=== PATIENT | female | born 1995 | race Caucasian/White ===

== ENCOUNTER 2018-03-15 11:40 | Outpatient (CLI) | END 2018-03-15 19:59 | disposition home or self-care (01) ==

== ENCOUNTER 2018-03-31 16:04 | Outpatient (CLI) | END 2018-03-31 20:45 | disposition home or self-care (01) ==

== ENCOUNTER 2018-04-01 11:06 | Outpatient (CLI) | END 2018-04-01 12:45 | disposition home or self-care (01) ==

== ENCOUNTER 2018-04-20 08:57 | Inpatient (IN) | END 2018-04-23 13:00 | disposition home or self-care (01) | DRG 766 ==

== ENCOUNTER 2018-10-27 14:51 | Emergency (ER) | payer MEDICAID ==
[~2018-10-27] VITALS: Ht 167.6 cm; Wt 89.6 kg
[~2018-10-27 14:51] MED LIST: PREN-93 PO
[2018-10-27 15:00] VITALS: Ht 167.6 cm; Wt 89.6 kg
--- NOTE | 2018-10-27 17:58 | ERD ---
ER Documentation Chief Complaint Chief Complaint Spotting, AP X 2 days, 9 wks HPI Patient is a 23-year-old female, G2, P1, presents the ER for concerns of vaginal spotting, diffuse abdominal pain times 2 days. Patient states she only has vaginal spotting when wiping. Patient denies wearing any pads. Patient denies any nausea, vomiting, diarrhea, fevers or chills. Patient states she goes to the [facility] for her OB care. Patient has not had an ultrasound yet. Patient states her last menstrual period was 3 months ago. Patient does not recall exact date. ROS All systems reviewed and are negative except as per history of present illness. Medications Home Meds Active Scripts Cephalexin* (Keflex*) 500 Mg Capsule, 500 MG PO BID for 7 Days, CAP Prov:HAIDER CARVAJAL PA-C 10/27/18 Reported Medications Vit No.124/Iron/FA ( Vitamin Tablet) 1 Each Tablet, 1 EACH PO DAILY, TAB 03/15/18 Allergies Allergies: Coded Allergies: No Known Allergy (Unverified , 04/20/18) PMhx/Soc History of Surgery: No Anesthesia Reaction: No Hx Neurological Disorder: No Hx Respiratory Disorders: Yes (ASTHMA (NOT TAKING MEDS)) Hx Cardiac Disorders: No Hx Psychiatric Problems: No Hx Miscellaneous Medical Probl: No Hx Alcohol Use: No Hx Substance Use: No Hx Tobacco Use: No Smoking Status: Never smoker FmHx Family History: No diabetes Physical Exam Vitals Physical Exam GENERAL: Well-developed, well-nourished female. Appears in no acute distress. Speaking in full sentences. HEAD: Normocephalic, atraumatic. EYES: Pupils are equally reactive bilaterally. EOMs grossly intact. No conjunctival erythema. ENT: Moist mucous membranes. No uvula deviation. No kissing tonsils. NECK: Supple. No meningismus. Normal range of motion of the neck. LUNG: Clear to auscultation bilaterally. No rhonchi, wheezing, rales or coarse breath sounds. HEART: Regular rate and rhythm. No murmurs, rubs or gallops. ABDOMEN: Soft and nondistended. Slight tenderness to palpation throughout the abdomen. Positive bowel sounds in all four quadrants. No rebound tenderness, no guarding. (-) McBurney's point tenderness. No CVA tenderness. EXTREMITIES: Equal pulses bilaterally. No peripheral clubbing, cyanosis or edema. No unilateral leg swelling. NEUROLOGIC: Alert and oriented. Moving all four extremities without any difficulty. Normal speech. Steady gait. SKIN: Normal color. Warm and dry. No rashes or lesions. Results 24 hrs Laboratory Tests Test 10/27/18 16:12 10/27/18 16:28 Urine Color YELLOW Urine Clarity CLEAR Urine pH 6.0 Urine Specific Robbins 1.023 Urine Ketones NEGATIVE mg/dL Urine Nitrite NEGATIVE mg/dL Urine Bilirubin NEGATIVE mg/dL Urine Urobilinogen NEGATIVE mg/dL Urine Leukocyte Esterase TRACE Josesito/ul Urine Microscopic RBC 1 /HPF Urine Microscopic WBC 1 /HPF Urine Squamous Epithelial Cells FEW /HPF Urine Hemoglobin NEGATIVE mg/dL Urine Glucose NEGATIVE mg/dL Urine Total Protein NEGATIVE mg/dl White Blood Count 10.1 10^3/ul Red Blood Count 3.74 10^6/ul Hemoglobin 10.3 g/dl Hematocrit 32.7 % Mean Corpuscular Volume 87.4 fl Mean Corpuscular Hemoglobin 27.5 pg Mean Corpuscular Hemoglobin Concent 31.5 g/dl Red Cell Distribution Width 14.3 % Platelet Count 351 10^3/UL Mean Platelet Volume 8.8 fl Immature Granulocytes % 0.300 % Neutrophils % 58.7 % Lymphocytes % 32.8 % Monocytes % 6.5 % Eosinophils % 1.3 % Basophils % 0.4 % Nucleated Red Blood Cells % 0.0 /100WBC Immature Granulocytes # 0.030 10^3/ul Neutrophils # 6.0 10^3/ul Lymphocytes # 3.3 10^3/ul Monocytes # 0.7 10^3/ul Eosinophils # 0.1 10^3/ul Basophils # 0.0 10^3/ul Nucleated Red Blood Cells # 0.0 10^3/ul Sodium Level 139 mmol/L Potassium Level 4.5 mmol/L Chloride Level 106 mmol/L Carbon Dioxide Level 24 mmol/L Anion Gap 9 Blood Urea Nitrogen 10 mg/dl Creatinine 0.58 mg/dl Est Glomerular Filtrat Rate mL/min > 60 mL/min Glucose Level 90 mg/dl Calcium Level 9.7 mg/dl Total Bilirubin 0.0 mg/dl Direct Bilirubin 0.00 mg/dl Indirect Bilirubin 0.0 mg/dl Aspartate Amino Transf (AST/SGOT) 18 IU/L Alanine Aminotransferase (ALT/SGPT) 20 IU/L Alkaline Phosphatase 75 IU/L Total Protein 8.0 g/dl Albumin 4.3 g/dl Globulin 3.70 g/dl Albumin/Globulin Ratio 1.16 Lipase 124 U/L Beta HCG, Quantitative 88897.0 mIU/ml Procedures/MDM ED COURSE: The patient was stable throughout ED course. I kept the patient and/or family informed of laboratory and diagnostic imaging results throughout the ED course. DIAGNOSTIC IMAGING: Read by radiologist. Patient: BONIFACIO MEHTA : 1995 Age: 23 Sex: F MR #: [id number] DOS: 10/27/18 1607 Ordering MD: HAIDER CARVAJAL PA-C Location: FTE Room/Bed: PROCEDURE: US OB. CLINICAL INDICATION: Spotting. . TECHNIQUE: Transabdominal views of the pelvis are available for review. COMPARISON: US PELVIS 04/20/2018 FINDINGS: There is a single intrauterine gestation with the crown-rump length measuring 1.83 cm, corresponding to a gestational age of 8 weeks and 2 days. The heart rate is noted at 176 bpm. Uterus is normal in appearance measuring 9.9 x 6.4 x 7.8 cm. The ovaries are normal in size and echogenicity. Normal Doppler flow is identified in both ovaries. The right ovary measures 4.1 x 3.1 x 4.4 cm. The left ovary measures 4.4 x 1.6 x 2.6 cm. There is no free fluid. IMPRESSION: Single live intrauterine with an estimated gestational age of 8 weeks and 2 days, based on ultrasound measurements. BRITTANY based on ultrasound measurements is 06/06/2019. RPTAT: HH Physician Love Date Time Electronically viewed and signed by Physician Love on 10/27/2018 17:20 ME/ CC: HAIDER CARVAJAL PA-C [phone] MEDICAL DECISION MAKING: This is a 23-year-old female, G2, P1, approximately 9 weeks , presents ER for concerns of vaginal spotting times 2-3 days now. Patient also reports diffuse abdominal pain.. Vital signs were reviewed. Patient was afebrile. Patient was hemodynamically stable. Urine test was positive. [place] [address]. Patient was noted to be A+ at previous visits. There is no indication for RhoGam at today's visit. CBC showed no evidence of systemic infection or severe anemia. CMP showed no severe electrolyte abnormalities, acidosis, alkalosis, renal failure or liver injury. UA did show trace leukocyte esterase. We will treat patient with course of antibiotics for concerns of UTI. Pelvic US showed Single live intrauterine with an estimated gestational age of 8 weeks and 2 days, based on ultrasound measurements. BRITTANY based on ultrasound measurements is 06/06/2019. At this time, the patient presentation was consistent with vaginal bleeding in the setting of as well as UTI. Low suspicion for ectopic , ruptured ectopic , molar , subchorionic hematoma, spontaneous , incomplete , complete , missed , placental a bruption, placental previa, vasa previa, uterine rupture, anembyronic . Patient was nontoxic, non-opening prior to discharge. Repeat beta hCG and ultrasound advised in 2 days. PRESCRIPTIONS: Keflex DISCHARGE: At this time, patient is stable for discharge and outpatient management. I had a conversation at length with the patient about the concerns of vaginal bleeding during the 1st trimester of . Patient and/or family understands that her vaginal bleeding can be a normal finding or a sign of miscarriage. I have instructed the patient to follow-up with her OBGYN in 1-2 days for further monitoring including a repeat b-HCG level. I have instructed the patient to promptly return to the ER at any time for any new or worsening symptoms includi ng increased pain, nausea, vomiting, continued bleeding, weakness, syncope or fever. The patient and/or family expressed understanding of and agreement with this plan. All questions were answered. Home care instructions were provided.. Disclaimer: Inadvertent spelling and grammatical errors are likely due to EHR/dictation software use and do not reflect on the overall quality of patient care. Also, please note that the electronic time recorded on this note does not necessarily reflect the actual time of the patient encounter. Departure Diagnosis: Primary Impression: Vaginal bleeding affecting early Additional Impression: UTI (urinary tract infection) Urinary tract infection type: site unspecified Hematuria presence: without hematuria Qualified Codes: N39.0 - Urinary tract infection, site not specified Condition: Stable Patient Instructions: Understanding Urinary Tract Infections (UTIs), Vaginal Bleed in Referrals: [facility] YOU HAVE RECEIVED A MEDICAL SCREENING EXAM AND THE RESULTS INDICATE THAT YOU DO NOT HAVE A CONDITION THAT REQUIRES URGENT TREATMENT IN THE EMERGENCY DEPARTMENT. FURTHER EVALUATION AND TREATMENT OF YOUR CONDITION CAN WAIT UNTIL YOU ARE SEEN IN YOUR DOCTORS OFFICE WITHIN THE NEXT 1-2 DAYS. IT IS YOUR RESPONSIBILITY TO MAKE AN APPOINTMENT FOR FOLOW-UP CARE. IF YOU HAVE A PRIMARY DOCTOR --you should call your primary doctor and schedule an appointment IF YOU DO NOT HAVE A PRIMARY DOCTOR YOU CAN CALL OUR PHYSICIAN REFERRAL HOTLINE AT IF YOU CAN NOT AFFORD TO SEE A PHYSICIAN YOU CAN CHOSE FROM THE FOLLOWING [facility] [address] [facility] [address] [place] [address] [facility] [address] [facility] [address] [facility] [address] [facility]. [facility] [address] [facility]. [facility] YOU HAVE RECEIVED A MEDICAL SCREENING EXAM AND THE RESULTS INDICATE THAT YOU DO NOT HAVE A CONDITION THAT REQUIRES URGENT TREATMENT IN THE EMERGENCY DEPARTMENT. FURTHER EVALUATION AND TREATMENT OF YOUR CONDITION CAN WAIT UNTIL YOU ARE SEEN IN YOUR DOCTORS OFFICE WITHIN THE NEXT 1-2 DAYS. IT IS YOUR RESPONSIBILITY TO MAKE AN APPOINTMENT FOR FOLOW-UP CARE. IF YOU HAVE A PRIMARY DOCTOR --you should call your primary doctor and schedule and appointment IF YOU DO NOT HAVE A PRIMARY DOCTOR YOU CAN CALL OUR PHYSICIAN REFERRAL HOTLINE AT . IF YOU CAN NOT AFFORD TO SEE A PHYSICIAN YOU CAN CHOSE FROM THE FOLLOWING [facility] INSTITUTIONS: [facility] [address] [place] [address] [facility] [address] [place] [address] [facility] [address] [place] [address] [employer] REFERRAL LIST SANDRITA, [place] [address] [facility] [address] [place] [address] OFFICE FAX , [place] [address] [place] [address] [address] [facility] [address] [place] [address] [address] DELUCA, [facility] [address], [address] [place] [address] [address] [facility] [address] [facility] [place] [address] [facility] [address] [place] [address] [phone] [facility] [address] - [place] [address], [place] [address] DR [place], [place] [address] [facility], [place] [address] [facility] [address] [place], [place] [id number] Additional Instructions: Call your primary care doctor/ OBGYN TOMORROW for an appointment during the next 1-2 days.See the doctor sooner or return here if your condition worsens before your appointment time. Repeat beta hCG and ultrasound advised in 2 days. HAIDER CARVAJAL PA-C Oct 27, 2018 17:58
[2018-10-27] MEDS ORDERED: CEPH-443 PO (17:59)
[2018-10-27 18:02] VITALS: BP 128/62; PULSE 73; RESP 18
== END 2018-10-27 18:05 | disposition home or self-care (01) ==
LOC: FTE 14:51
DX: O20.9 Hemorrhage in early pregnancy, unspecified (principal); O23.41 Unspecified infection of urinary tract in pregnancy, first trimester; O99.511 Diseases of the respiratory system complicating pregnancy, first trimester; J45.909 Unspecified asthma, uncomplicated; Z3A.08 8 weeks gestation of pregnancy
CPT/HCPCS: 36415; 76805; 80053; 81001; 83690; 84702; 85025

== ENCOUNTER 2019-05-29 10:10 | Inpatient (IN) | payer MEDICAID ==
[~2019-05-29] VITALS: Ht 167.6 cm; Wt 101.3 kg
[~2019-05-29 10:10] MED LIST changes: +CEPH-443 PO
[2019-05-29] MEDS ORDERED: LACTATED RINGER'S 1,000 ML IV SCH (10:21)
[2019-05-29] MEDS ORDERED: MISOPROSTOL 200 MCG TAB PR PRN ×2 (10:30→12:30)
[2019-05-29] MEDS ORDERED: OXYTOCIN 30 UNITS/LR 500 ML IV PRN ×2 (10:30→12:30)
[2019-05-29] MEDS ORDERED: CEFAZOLIN 2 GM/50 ML (PMX) 50 ML IVPB SCH (10:30)
[2019-05-29] MEDS ORDERED: METHYLERGONOVINE 0.2 MG INJ IM PRN ×2 (10:30→12:30)
[2019-05-29] MEDS ORDERED: OXYTOCIN 30 UNITS/LR 500 ML IV SCH (10:30)
[2019-05-29] MEDS ORDERED: CARBOPROST 250 MCG INJ IM PRN ×2 (10:30→12:30)
[2019-05-29 10:36] VITALS: Ht 167.6 cm; Wt 101.3 kg
--- NOTE | 2019-05-29 10:53 | PREAC ---
Date/Time of Note Date/Time of Note DATE: 05/29/19 TIME: 10:51 Anesthesia Eval and Record Evaluation Time Pre-Procedure Interview DATE: 05/29/19 TIME: 10:51 Age 23 Sex female NPO: 8 hrs Preoperative diagnosis repeat c section Planned procedure c section Past Medical History Past Medical History: Includes GI: Obesity : Gestational age: (39) Surgery & Anesthesia Issues No known issue Meds Anticoagulation: No Beta Jessie within 24 hr: No Reason Beta Jessie not given: Pt. not on B-Jessie Active Scripts Cephalexin* (Keflex*) 500 Mg Capsule, 500 MG PO BID for 7 Days, CAP Prov:HAIDER CARVAJAL PA-C 10/27/18 Reported Medications Vit No.124/Iron/FA ( Vitamin Tablet) 1 Each Tablet, 1 EACH PO DAILY, TAB 03/15/18 Current Medications Lactated Ringer's 1,000 ml @ 125 mls/hr Q8H IV ; Start 05/29/19 at 10:21 Cefazolin Sodium/ Dextrose 50 ml @ 100 mls/hr ONCE IVPB ; Start 05/29/19 at 10:30 Oxytocin/Lactated Ringer's 500 ml @ 125 mls/hr POST IV ; Start 05/29/19 at 10:30 Oxytocin/Lactated Ringer's 500 ml @ 0 mls/hr ONCE PRN IV .VAGINAL BLEEDING; Start 05/29/19 at 10:30 Methylergonovine Maleate (Methergine) 0.2 mg ONCE PRN IM .VAGINAL BLEEDING; Start 05/29/19 at 10:30 Carboprost Tromethamine (Hemabate) 250 mcg ONCE PRN IM .VAGINAL BLEEDING; Start 05/29/19 at 10:30 Misoprostol (Cytotec) 1,000 mcg ONCE PRN IL .VAGINAL BLEEDING; Start 05/29/19 at 10:30 Meds reviewed: Yes Allergies Coded Allergies: No Known Allergy (Unverified , 04/20/18) Allergies Reviewed: Yes Labs/Studies Labs Reviewed: Reviewed by anesthesiologist test: Positive Studies: ECG (n/a), CXR (n/a) Pre-procedure Exam Airway: Adequate mouth opening Mallampati: Mallampati I Teeth: Normal Lung: Normal Heart: Normal ASA Physical Status ASA physical status: 2 Emergency: None Planned Anesthetic Neuraxial: Spinal Planned Pain Management Sub-arachniod narcotics Pre-operative Attestations Prior to commencing anesthesia and surgery, the patient was re-evaluated, there was verification of: *The patient's identity *The results of appropriate recent lab work and preoperative vital signs *The above evaluation not changing prior to induction *Anesthetic plan, risk benefits, alternative and complications discussed with p atient/family; questions answered; patient/family understands, accepts and wishes to proceed. ASHVIN MCLAIN MD May 29, 2019 10:53
[2019-05-29] MEDS ORDERED: CITRIC ACID/NA CITRATE 30 ML CUP PO ONE (11:00)
[2019-05-29] MEDS ORDERED: morphine SULFATE/PF (10 MG/10 ML) INJ ONE (11:17)
[2019-05-29] MEDS ORDERED: ONDANSETRON 4 MG INJ ONE (11:17)
[2019-05-29] MEDS ORDERED: KETOROLAC 30 MG INJ ONE (11:17)
[2019-05-29] MEDS ORDERED: OXYTOCIN 30 UNITS/LR 500 ML IV ONE ×2 (11:17→12:16)
[2019-05-29] MEDS ORDERED: METOCLOPRAMIDE 10 MG INJ ONE (11:17)
[2019-05-29] MEDS ORDERED: EPHEDrine 25 MG/5 ML SYG ONE (11:29)
--- NOTE | 2019-05-29 11:32 | PREOPHP ---
DATE OF ADMISSION: 05/29/2019 HISTORY OF PRESENT ILLNESS: Ms. Jamila Almodovar is a 23-year-old 2, para 1, EDC 9 intrauterine at 39 weeks gestational age, admitted today for elective repeat del oskar. She denies any contractions, vaginal bleeding, or discharge. She reports good movement . Her care took place with Dr. Mayer. PAST MEDICAL HISTORY: Obese. MEDICATIONS: vitamins. PAST SURGICAL HISTORY: x1 previous section. OBSTETRIC HISTORY: x1 previous section. GYNECOLOGIC HISTORY: 12, regular 3 to 4 days. The patient was tested positive for syphilis in the c urrent and treated with penicillin G. SOCIAL HISTORY: Denies any smoking, drugs or alcohol. FAMILY HISTORY: None. REVIEW OF SYSTEMS: All within normal except history of present illness. PHYSICAL EXAMINATION: HEENT: Within normal. LUNGS: CTA bilateral. CARDIOVASCULAR: S1, S2, regular rhythm. ABDOMEN: Gravid, nontender. Negative CVA bilateral. EXTREMITIES: Negative edema. No calf tenderness. PELVIC: Vaginal exam deferred. heart tracing category 1. ASSESSMENT: Intrauterine at 39 weeks' gestational age, previous section x1, histo ry of anemia, desires elective repeat delivery. Declined vaginal after . PLAN: Consent for repeat delivery, cross-matched for 2 units. Risks, benefits, and alterna tives explained. All questions were answered. Dictated By: MICHELLE DIAMOND/DALI Conf#: [id number] DID#: [id number]
--- NOTE | 2019-05-29 12:23 | OPPN ---
Date/Time of Note Date/Time of Note DATE: 05/29/19 TIME: 12:21 Operative Report Planned Procedure Procedure date May 29, 2019 Procedure(s) repeat low transverse CD Performed by see signature line Factory Maintenance Technician: GINETTE PERALTA MD 2nd Factory Maintenance Technician none Anesthesiologist: ASHVIN MCLAIN MD Pre-procedure diagnosis Intrauterine at 39 weeks' gestational age, previous section x1, history of anemia, desires elective repeat delivery. Declined vaginal after . [id number] Anesthesia Type: Ixylg4s spinal Post-Procedure Post-procedure diagnosis same Findings a viable male 8/9 weight 4355 grams. normal uterus tubes and ovaries Estimated Blood Loss: 500 - 600 mls (500) Specimen(s) none Grafts/Implant(s) none Complication(s) none MICHELLE PETERS MD May 29, 2019 12:23
[2019-05-29] MEDS ORDERED: NACL 0.9% 3 ML SYG IV SCH (12:30)
[2019-05-29] MEDS ORDERED: MEPERIDINE 25 MG INJ IV PRN (12:30)
[2019-05-29] MEDS ORDERED: ONDANSETRON 4 MG INJ IV PRN ×2 (12:30)
[2019-05-29] MEDS ORDERED: DIPHENHYDRAMINE 50 MG INJ IV PRN ×2 (12:30)
[2019-05-29] MEDS ORDERED: KETOROLAC 30 MG INJ IV PRN (12:30)
[2019-05-29] MEDS ORDERED: LANOLIN HPA 1 PKT TOP PRN (12:30)
[2019-05-29] MEDS ORDERED: OXYCODONE/ACETAMINOPHEN (5/325) TAB PO PRN (12:30)
[2019-05-29] MEDS ORDERED: morphine 2 MG INJ IV PRN ×6 (12:30)
[2019-05-29] MEDS ORDERED: NALOXONE (0.4 MG/ML) INJ IV PRN (12:30)
--- NOTE | 2019-05-29 12:43 | OPR ---
DATE OF OPERATION: 05/29/2019 PREOPERATIVE DIAGNOSES: 1. Intrauterine at 39 weeks' gestational age. 2. Previous section x1. 3. History of anemia. 4. Desires elective repeat delivery. 5. Declined vaginal after . POSTOPERATIVE DIAGNOSES: 1. Intrauterine at 39 weeks' gestational age. 2. Previous section x1. 3. History of anemia. 4. Desires elective repeat delivery. 5. Declined vaginal after . OPERATION PERFORMED: Repeat low transverse delivery via Pfannenstiel incision. SURGEON: Jonathan Agarwal MD [employer] PLANT INSTRUCTOR: Christiana Torrez MD ANESTHESIOLOGIST: Aileen Osborn MD ANESTHESIA: Spinal. ESTIMATED BLOOD LOSS: 500 mL. COMPLICATIONS: None. FINDINGS: A viable male, 8 and 9 respectively at one and five minutes, weight 4355 grams. Nor mal uterus, tubes and ovaries. PROCEDURE: After explaining the risks, benefits and alternatives to the patient and consent signed i n the chart, the patient was taken to the operating room, where spinal anesthesia was found to be nimo quate. She was then prepared and draped in normal sterile fashion in dorsal supine position with a l eftward tilt. A Pfannenstiel skin incision was then made with a scalpel and carried to the underlyin g fascia. The fascia was incised in the midline. The incision was extended laterally with Romo scis sors. The superior aspect of the fascial incision then was grasped with Lefty clamps, elevated, and the underlying rectus muscles dissected off bluntly. Attention was then turned to the inferior aspe ct of the incision, which in a similar fashion was grasped with curved clamps, elevated, and the unde rlying rectus muscle was dissected off bluntly. The rectus muscle was in the midline, nancy toneum identified, tented up, incised sharply with Metzenbaum scissors. The peritoneal incision was extended superiorly and inferiorly with good visualization of bladder. The bladder blade was inserte d in the lower segment incised in a transverse fashion with a scalpel. The uterine incision was ext ended laterally. The bladder blade was removed, and the 's head delivered atraumatically. The nose and mouth were suctioned, the cord clamped and cut. The was handed off to awaiting pedi atrician. The placenta was then removed and cleared of all clots and debris. The uterine incision w as repaired with 0 Monocryl in a running locked fashion. A second layer of the same suture was used for imbrication, obtaining excellent hemostasis. The uterus was then returned to the abdomen. The g utters were cleared of all clots. The peritoneum and rectus abdominis muscles were approximated with 2-0 Monocryl in an interrupted fashion. The fascia was reapproximated with 0 Vicryl in a running fa shion. The subcutaneous tissue was reapproximated with 2-0 plain gut in a running fashion. The skin was closed with absorbable carlyle. The patient tolerated the procedure well. Sponge, lap and need le counts were correct. The patient was taken to recovery room in stable condition. Dictated By: JONATHAN DIAMOND/DALI Conf#: [id number] DID#: [id number]
[2019-05-29] MEDS: OXYTOCIN 30 UNITS/LR 500 ML IV SCH ×2 (16:53→21:16)
[2019-05-29 17:30] VITALS: BP 126/59; PULSE 90; RESP 18
[2019-05-29] MEDS: IBUPROFEN 600 MG TAB PO SCH (18:00)
[2019-05-29 19:45] VITALS: BP 116/57; PULSE 92; RESP 20
[2019-05-29] MEDS: CEFAZOLIN 2 GM/50 ML (PMX) 50 ML IVPB SCH (22:01)
--- NOTE | 2019-05-30 00:59 | OPPN ---
Date/Time of Note Date/Time of Note DATE: 05/30/19 TIME: 00:59 Anesthesia Follow up Anesthesia Follow up Last documented vital signs Vital Signs Date Temp Pulse Resp B/P (MAP) Pulse Ox O2 O2 Flow FiO2 Time Delivery Rate 05/29/19 98.7 92 20 116/57 98 Room Air 19:45 (76) Respiratory function: WNL Cardiovascular function: WNL Comments A 23 year female s/p spinal duramorph for post op pain, POD #1 i. pt is doing fine, No headache, pain , N/V, itching, SOB, neural deficit ASHVIN MCLAIN MD May 30, 2019 00:59
[2019-05-30] MEDS: KETOROLAC 30 MG INJ IV PRN ×2 (02:00→08:04)
[2019-05-30 04:36] VITALS: BP 107/54; PULSE 78; RESP 20
[2019-05-30] MEDS: CEFAZOLIN 2 GM/50 ML (PMX) 50 ML IVPB SCH ×2 (05:59→13:39)
[2019-05-30] MEDS: IBUPROFEN 600 MG TAB PO SCH ×5 (06:00→23:57)
--- NOTE | 2019-05-30 06:06 | PAC ---
Date/Time of Note Date/Time of Note DATE: 05/30/19 TIME: 06:05 Post-Anesthesia Notes Post-Anesthesia Note Last documented vital signs Vital Signs Date Temp Pulse Resp B/P (MAP) Pulse Ox O2 O2 Flow FiO2 Time Delivery Rate 05/30/19 97.9 78 20 107/54 Room Air 04:36 (71) 05/29/19 98 19:45 Activity: WNL Respiratory function: WNL Cardiovascular function: WNL Mental status: Baseline Pain reasonably controlled: Yes Hydration appropriate: Yes Nausea/Vomiting absent: No ASHVIN MCLAIN MD May 30, 2019 06:06
[2019-05-30 08:04] VITALS: BP 112/56; PULSE 75; RESP 18
[2019-05-30] MEDS ORDERED: LACTATED RINGER'S 1,000 ML IV SCH (11:30)
[2019-05-30] MEDS: OXYCODONE/ACETAMINOPHEN (5/325) TAB PO PRN ×2 (12:51→16:59)
--- NOTE | 2019-05-30 13:48 | QN ---
Documentation Comment progress note pod 1 patient was seen and evaluated no complaints vs stable afebrile ab dressing clean/dry no distention extremity no edema no calf tenderness a/ sp cs pod 1 stable afebrile p/ encourage ambulation MICHELLE PETERS MD May 30, 2019 13:48
[2019-05-30] MEDS ORDERED: CEFAZOLIN 2 GM/50 ML (PMX) 50 ML IVPB ONE (14:00)
[2019-05-30 16:00] VITALS: BP 101/52; PULSE 77; RESP 18
[2019-05-30 20:10] VITALS: BP 111/54; PULSE 79; RESP 18
[2019-05-31] MEDS: OXYCODONE/ACETAMINOPHEN (5/325) TAB PO PRN ×2 (02:15→10:15)
[2019-05-31 03:36] VITALS: BP 121/58; PULSE 85; RESP 18
[2019-05-31] MEDS: IBUPROFEN 600 MG TAB PO SCH ×3 (05:34→18:01)
--- NOTE | 2019-05-31 07:44 | QN ---
Documentation Comment progress note pod 2 patient was seen and evaluated no complaints vs stable afebrile ab c/d/i no distention extremity no edema no calf tenderness a/ sp cs pod 2 stable afebrile p/ discharge home tomorrow MICHELLE PETERS MD May 31, 2019 07:44
--- NOTE | 2019-05-31 07:46 | PD.PPDC ---
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
[2019-05-31 08:00] VITALS: BP 105/56; PULSE 74; RESP 18
[2019-05-31] MEDS ORDERED: BISACODYL 10 MG SUPP PR ONE (08:00)
[2019-05-31 16:39] VITALS: BP 107/57; PULSE 80; RESP 18
[2019-05-31 19:45] VITALS: BP 118/68; PULSE 74; RESP 19
--- NOTE | 2019-05-31 22:17 | DS ---
DATE OF ADMISSION: 05/29/2019 DATE OF DISCHARGE: 05/31/2019 PRIMARY DIAGNOSES: 1. Intrauterine at 39 weeks' gestational age. 2. Previous section x1. 3. Desires elective repeat delivery. 4. Declined vaginal after . PROCEDURE: Repeat low transverse delivery. CONDITION ON DISCHARGE: Stable. ACTIVITY: None per vagina, no lifting x6 weeks. DIET: Regular. MEDICATIONS ON DISCHARGE: 1. Motrin. 2. Iron. 3. Colace. DISCHARGE SUMMARY: Ms. Jamila Almodovar underwent a repeat low transverse delivery on 02/2019. She had a viable male, 8 and 9 respectively at 1 and 5 minutes, weight 4355 grams. S he had an uneventful postop day 1 and 2. She was discharged on postop day 3. Her incision is clean, dry and intact. She is ambulating, tolerating diet, positive flatulence, positive bowel movement. She will follow up in the clinic in 2 weeks for /postop care. Dictated By: MICHELLE DIAMOND/DALI Conf#: [id number] DID#: [id number]
[2019-06-01] MEDS: IBUPROFEN 600 MG TAB PO SCH ×3 (00:41→11:37)
[2019-06-01 04:00] VITALS: BP 121/73; PULSE 70; RESP 20
[2019-06-01 07:50] VITALS: BP 125/66; PULSE 71; RESP 18
[2019-06-01] MEDS: OXYCODONE/ACETAMINOPHEN (5/325) TAB PO PRN (07:50)
[2019-06-01 16:19] VITALS: BP 125/76; PULSE 75; RESP 2
== END 2019-06-01 16:55 | disposition home or self-care (01) | DRG 788 ==
LOC: L-D 10:10 → MS1 18:03
PROVIDERS: ADMIT Obstetrics & Gynecology; ATTEND Obstetrics & Gynecology
PROC: 10D00Z1 Extraction of Products of Conception, Low, Open Approach (ICD-10-PCS; principal; 2019-05-29 12:30)
DX: O65.5 Obstructed labor due to abnormality of maternal pelvic organs (principal); O34.211 Maternal care for low transverse scar from previous cesarean delivery; Z3A.39 39 weeks gestation of pregnancy; Z37.0 Single live birth
CPT/HCPCS: 85025; 85610; 85730; 86592; 86850; 86900; 86901; 86920; 87340; 99464; J0690; J1885; J2210; J2270; J2274; J2405; J2590; J2765; J7120